=== PATIENT | male | born 1970 | race Caucasian/White ===

== ENCOUNTER → 2020-08-12 | Outpatient (CLI) | payer OTHER | LOC: KOH-I 12:03 | DX: M79.642 Pain in left hand (principal); M25.532 Pain in left wrist | CPT/HCPCS: 73110; 73130 ==

== ENCOUNTER 2020-08-13 14:22 | Emergency (ER) | payer OTHER | END 2020-08-13 15:16 | disposition home or self-care (01) | LOC: ER1 14:22 | DX: S60.453A Superficial foreign body of left middle finger, initial encounter (principal); W45.8XXA Other foreign body or object entering through skin, initial encounter | CPT/HCPCS: 99283 ==

== ENCOUNTER 2021-05-11 13:30 | Emergency (ER) | payer OTHER ==
[2021-05-11] MEDS ORDERED: CYCLOBENZAPRINE10 MG PO (17:31)
[2021-05-11] MEDS ORDERED: IBUPROFEN600 MG PO (17:31)
== END 2021-05-11 18:18 | disposition home or self-care (01) ==
LOC: ER1 13:30
DX: M54.16 Radiculopathy, lumbar region (principal); F17.210 Nicotine dependence, cigarettes, uncomplicated
CPT/HCPCS: 72131; 81001; 87086; 96372; 99284; J1885; J2270; J2360

== ENCOUNTER 2021-07-16 02:20 | Emergency (ER) | payer OTHER ==
[~2021-07-16 02:20] MED LIST: CYCLOBENZAPRINE10 MG PO; IBUPROFEN600 MG PO
[2021-07-16 02:53] LABS: HEMOGLOBIN 14.6 gm/dl (14.0-17.5); RED BLOOD COUNT 4.63 M/UL (4.20-5.50); WHITE BLOOD COUNT 7.6 K/UL (4.5-11.0)
[2021-07-16 03:19] LABS: BUN/CREATININE RATIO 8 (0-10)
[2021-07-16] MEDS ORDERED: K-TAB ER10 MEQ PO (05:22)
== END 2021-07-16 05:36 | disposition home or self-care (01) ==
LOC: ER1 02:20
PROVIDERS: Physician Assistant
DX: R07.9 Chest pain, unspecified (principal); M79.602 Pain in left arm; E87.6 Hypokalemia; F17.210 Nicotine dependence, cigarettes, uncomplicated
CPT/HCPCS: 71045; 80053; 82550; 82553; 83880; 84484; 85025; 85610; 85730; 93005; 96374; 99285; J1885

== ENCOUNTER → 2021-07-20 | Outpatient (CLI) | payer OTHER ==
[~2021-07-20] MED LIST changes: +K-TAB ER10 MEQ PO
== END ==
LOC: KOH-I 12:13
DX: M25.512 Pain in left shoulder (principal)
CPT/HCPCS: 72040; 73030